=== PATIENT | female | born 1995 | race Caucasian/White ===

== ENCOUNTER 2017-04-13 00:52 | Emergency (ER) | payer BC ==
[2017-04-13 00:57] VITALS: RESP 20
[2017-04-13] MEDS ORDERED: PREDNISONE 20 MG TAB PO ONE (01:06)
[2017-04-13] MEDS ORDERED: DIPHENHYDRAMINE 25 MG CAP PO ONE (01:07)
[2017-04-13] MEDS ORDERED: PREDNISONE 20 MG TAB ONE (01:09)
[2017-04-13] MEDS ORDERED: DIPHENHYDRAMINE 25 MG CAP ONE (01:09)
[2017-04-13 02:25] VITALS: BP 111/60; PULSE 113; TEMP 98; O2SAT 98
== END 2017-04-13 01:45 | disposition home or self-care (01) ==
LOC: ED 00:52
DX: B27.90 Infectious mononucleosis, unspecified without complication (principal); L50.9 Urticaria, unspecified
CPT/HCPCS: 99282; A9270-GY

== ENCOUNTER 2017-04-13 17:25 | Emergency (ER) | payer BC ==
[2017-04-13 17:39] VITALS: TEMP 98.7
[2017-04-13 17:52] VITALS: BP 116/69; PULSE 104; RESP 20; O2SAT 99
== END 2017-04-13 18:15 | disposition home or self-care (01) ==
LOC: ED 17:25
DX: B27.90 Infectious mononucleosis, unspecified without complication (principal); R21 Rash and other nonspecific skin eruption
CPT/HCPCS: 99282